=== PATIENT | male | born 1975 | race Caucasian/White ===

== ENCOUNTER 2021-07-22 05:51 | Day surgery (SDC) | payer OTHER ==
[2021-07-19 14:05] VITALS: BMI 32.5
[2021-07-22] MEDS ORDERED: MIDAZOLAM HCL 2 MG/2 ML SINGLE DOSE VIAL ONE (08:36)
[2021-07-22] MEDS ORDERED: PROPOFOL 20 ML ONE ×2 (09:14→09:37)
[2021-07-22] MEDS ORDERED: ceFAZolin SODIUM 1 GM VIAL ONE (09:32)
[2021-07-22] MEDS ORDERED: ONDANSETRON 4 MG/2 ML VIAL ONE (09:32)
[2021-07-22] MEDS ORDERED: KETOROLAC TROMETHAMINE 30 MG/1 ML VIAL ONE (09:32)
[2021-07-22] MEDS ORDERED: DEXAMETHASONE SOD PHOSPHATE 4 MG/1 ML VIAL ONE (09:32)
[2021-07-22] MEDS ORDERED: BUPIVACAINE HCL/PF 0.25% (2.5MG/ML) 10 ML VIAL ONE (09:35)
[2021-07-22] MEDS ORDERED: LIDOCAINE HCL 1%, 10 MG/ML (20ML VIAL) ONE (09:36)
[2021-07-22] MEDS ORDERED: LIDOCAINE 1%/EPI 1:100000 (20 ML MULTI DOSE VIAL) ONE (09:36)
[2021-07-22 10:46] VITALS: TEMP 97.4
[2021-07-22 11:32] VITALS: BP 142/90; PULSE 65
== END 2021-07-22 11:10 | disposition home or self-care (01) ==
LOC: FASU 05:51
PROVIDERS: ATTEND Orthopaedic Surgery
PROC: 0LN33ZZ Release Right Upper Arm Tendon, Percutaneous Approach (ICD-10-PCS; 2021-07-22)
PROC: XK02303 Introduction of Concentrated Bone Marrow Aspirate into Muscle, Percutaneous Approach, New Technology Group 3 (ICD-10-PCS; 2021-07-22)
PROC: 0LN43ZZ Release Left Upper Arm Tendon, Percutaneous Approach (ICD-10-PCS; principal; 2021-07-22 09:50)
DX: M77.11 Lateral epicondylitis, right elbow (principal); M77.12 Lateral epicondylitis, left elbow
CPT/HCPCS: 0232T; 24357